=== PATIENT | male | born 1975 | race Caucasian/White ===

== ENCOUNTER 2021-10-02 00:48 | Observation (INO) ==
[2021-10-02] MEDS ORDERED: MORPHINE 2 MG/1 ML SYRINGE IV STA (01:01)
[2021-10-02] MEDS ORDERED: ONDANSETRON 4 MG/2 ML VIAL IV STA (01:01)
[2021-10-02] MEDS ORDERED: NITROGLYCERIN 2% OINT 1 INCH/GM PACK TOP STA (01:01)
[2021-10-02] MEDS ORDERED: ASPIRIN 325 MG TABLET PO STA (01:01)
[2021-10-02] MEDS ORDERED: ENOXAPARIN 100 MG/ML SYRINGE SUBCUT STA (01:02)
[2021-10-02 01:12] LABS: Basophils % 0.4 % (0.0-0.8); Eosinophils # 0.2 10*3/uL (0.0-0.87); Eosinophils % 1.9 % (0.00-10.9); Hematocrit 40.9 VOL% (42.0-52.0); Hemoglobin 13.7 GM/DL (14.0-18.0); Immature Granulocytes % 0.4 %; Immature Granulocytes Absolute 0.04 #; Lymphocytes # 2.7 10*3/uL (1.4-4.0); Lymphocytes % 25.2 % (21.2-54.2); Mean Corpuscular HGB Conc 33.5 GM/DL (32-36); Mean Corpuscular Volume 85.4 FL (87-102); Monocytes # 0.8 10*3/uL (0.11-0.8); Monocytes % 7.6 % (1.7-12.7); Neutrophils % 64.5 % (38.7-73.9); Platelet Count 278 T/CUMM (130-400); Red Blood Count 4.79 MC/CUMM (3.8-5.5); Red Cell Distribution Width 13.1 % (9.3-17.3); White Blood Count 10.6 T/CUMM (4-12)
[2021-10-02 01:23] LABS: PT Patient Result 10.8 SECS (10.5-12.0); Partial Thromboplastin Time 25.8 SECS (23.8-32.1)
[2021-10-02 01:34] LABS: Alanine Aminotransferase 35 U/L (16-61); Albumin 3.7 G/DL (3.4-5.0); Alkaline Phosphatase 92 U/L (45-117); Aspartate Amino Transferase 18 U/L (0-37); Bilirubin,Total < 0.39 MG/DL (0.20-1.00); Blood Urea Nitrogen 18 MG/DL (7-18); Calcium 8.5 MG/DL (8.5-10.1); Carbon Dioxide 23 MMOL/L (21-32); Chloride 108 MMOL/L (98-107); Glucose 97 MG/DL (74-106); Osmolality,Calculated 276.7 MOS/KG (273-304); Potassium 3.7 MMOL/L (3.5-5.1); Sodium 138 MMOL/L (136-145); Total Protein 6.8 G/DL (6.4-8.2)
[2021-10-02] MEDS ORDERED: hydrALAZINE 20 MG/1 ML VIAL IV PRN (02:35)
[2021-10-02] MEDS ORDERED: ACETAMINOPHEN 325 MG TABLET PO PRN (02:35)
[2021-10-02] MEDS ORDERED: MORPHINE 2 MG/1 ML SYRINGE IV PRN (02:35)
[2021-10-02] MEDS ORDERED: GLUCAGON 1 MG VIAL IM PRN (02:35)
[2021-10-02] MEDS ORDERED: DEXTROSE 10% 250 ML BAG IV PRN (02:35)
[2021-10-02] MEDS ORDERED: ONDANSETRON 4 MG/2 ML VIAL IV PRN (02:35)
[2021-10-02] MEDS ORDERED: ALBUTEROL/IPRATROPIUM 3 ML NEB RESP TX PRN (02:52)
[2021-10-02] MEDS: NITROGLYCERIN 2% OINT 1 INCH/GM PACK TOP SCH ×2 (06:17→13:50)
[2021-10-02] MEDS ORDERED: CLOPIDOGREL 75 MG TABLET PO SCH (09:00)
[2021-10-02] MEDS ORDERED: PANTOPRAZOLE 40 MG TABLET PO SCH ×2 (09:00→21:00)
[2021-10-02] MEDS ORDERED: ASPIRIN CHEW 81 MG TABLET PO SCH (09:00)
[2021-10-02] MEDS: INSULIN LISPRO 100 UNIT/ML SUBCUT SCH ×2 (09:07→13:58)
[2021-10-02] MEDS ORDERED: carvediloL 12.5 MG TABLET PO SCH (10:30)
[2021-10-02] MEDS ORDERED: ROSUVASTATIN 20 MG TABLET PO SCH (10:30)
[2021-10-02] MEDS ORDERED: ARIPiprazole 5 MG TABLET PO SCH (12:00)
[2021-10-02] MEDS ORDERED: VENLAFAXINE XR 75 MG CAPSULE PO SCH (12:01)
[2021-10-02] MEDS ORDERED: lisinopriL 10 MG TABLET PO SCH (12:41)
[2021-10-02] MEDS ORDERED: CYCLOBENZAPRINE 10 MG TABLET PO PRN (14:21)
[2021-10-02] MEDS ORDERED: ALBUTEROL 2.5 MG/3 ML NEB RESP TX PRN (14:46)
[2021-10-02] MEDS ORDERED: BENZTROPINE 0.5 MG TABLET PO SCH (15:00)
[2021-10-02] MEDS ORDERED: FUROSEMIDE 20 MG TABLET PO SCH (16:00)
[2021-10-02 17:10] VITALS: BP 138/92
[2021-10-02] MEDS ORDERED: GLIMEPIRIDE 2 MG TABLET PO SCH (21:00)
[2021-10-02] MEDS ORDERED: traZODone 50 MG TABLET PO SCH (21:00)
[2021-10-02] MEDS ORDERED: busPIRone 15 MG TABLET PO SCH (21:00)
[2021-10-03] MEDS ORDERED: ARIPiprazole 5 MG TABLET PO SCH (09:00)
[2021-10-03] MEDS ORDERED: VENLAFAXINE XR 75 MG CAPSULE PO SCH (09:00)
[2021-10-03] MEDS ORDERED: DILTIAZEM CD 240 MG CAPSULE PO SCH (09:00)
== END 2021-10-02 17:13 | disposition home or self-care (01) ==
LOC: EDBD → EDUNIT# → N.ED 00:48 → N.EDINP 00:48 → SUATTDRO 02:35 → N.TELES 02:53
PROVIDERS: ADMIT Internal Medicine; ATTEND Internal Medicine